=== PATIENT | female | born 1985 | race African-American/Black ===

== ENCOUNTER → 2016-09-06 | Outpatient (CLI) | payer OTHER ==
--- NOTE | ~2016-09-06 | US5 ---
[facility] A Service of [facility] / [facility] RADIOLOGY TEXT RESULTS PATIENT: JESSIKA CHRISTIANSON LOCATION: [facility] : 85 UNIT #: [id number] AGE: [address]: CATARINA ELIAS MD SEX: F ORDER DR: [id number] [facility] [address]. [place], [place] [address] [id number] O MR#: [id number] Acc #: [id number] NAME: JESSIKA CHRISTIANSON : 1985 SEX: F STUDY DATE/TIME: 09/06/2016 10:45 UNIT: [facility] ROOM: STUDY DESCRIPTION: US Abdominal Complete Attending Physician: Catarina Elias M.D. Referring Physician: Catarina Elias M.D. Ordering Physician: Catarina Elias M.D. Primary Care Physician: Catarina Elias M.D. MEDICAL IMAGING REPORT This report is preliminary unless electronic signature is present EXAM Abdominal ultrasound complete, 09/06/2016 HISTORY Abnormally elevated liver enzymes on 08/27/2016. FINDINGS The liver demonstrates an increase in echotexture with attenuation of the ultrasound beam characteristic of mild fatty infiltration. No cystic or solid mass lesions were seen in the liver. The intra and extrahepatic bile ducts are not dilated. The gallbladder is normal with no evidence of cholelithiasis, wall thickening or pericholecystic fluid. The common duct measures 4.0 mm. The pancreas and spleen are normal. The spleen measures 8.8 cm in greatest diameter. The visualized portions of the abdominal aorta and inferior vena cava are within normal limits. The kidneys are normal bilaterally. IMPRESSION Fatty infiltration of the liver. Otherwise negative abdominal ultrasound. Dictated by... Ramiro Woodall M.D. THIS IS AN ELECTRONICALLY VERIFIED REPORT Ramiro Woodall M.D. at 09/06/2016 5:14 PM Sheyla TD: 09/06/2016 15:46 JOB #: [id number] MEDICAL IMAGING REPORT Page 1 of 1 COPY
== END | disposition home or self-care (01) ==
LOC: CGUS 10:30
DX: R79.89 Other specified abnormal findings of blood chemistry (principal); K76.0 Fatty (change of) liver, not elsewhere classified
CPT/HCPCS: 76700